=== PATIENT | female | born 1945 | race Caucasian/White ===

== ENCOUNTER 2024-07-15 15:34 | Emergency (ER) | payer MEDICARE, BC, SELFPAY ==
[2024-07-15 15:39] VITALS: BP 121/73; PULSE 71; RESP 16; TEMP 37; O2SAT 97
--- NOTE | 2024-07-15 15:45 | RT.EKG_ITS ---
APPROVED REPORT Exam: Resting ECG Reason for Exam: Fall Patient Location: E HR:106 bpm ECG Measurements Heart Rate 106 AXIS [place] [id number] P [id number] QRSd 120 QRS -63 QT 397 T 63 QTc 528 Conclusion Atrial fibrillation with RVR Rate 106 LA fasicular block, LVH No STEMI
--- NOTE | 2024-07-15 15:46 | W.ED.GENAD ---
Discharge Plan Disposition Patient Disposition: Care Home Facility(SNF) Condition: Stable Discharge Details Clinical Impression: Closed head injury without concussion, Fall Primary Care Provider: Unknown,Unknown ED Provider: Brianna Barrera Home Meds and New Rx's Prescriptions: Continued acetaminophen 325 mg capsule 650 mg PO Q4H PRN apixaban 5 mg tablet 5 mg PO BID bisacodyl [Laxative (bisacodyl)] 10 mg suppository 10 mg [place] DAILY PRN ergocalciferol (vitamin D2) 1,250 mcg (50,000 unit) capsule 1,250 mcg PO QWEEK Patient Comments: fridays furosemide 20 mg tablet 20 mg PO DAILY levothyroxine [Euthyrox] 125 mcg tablet 125 mcg PO DAILY losartan [Cozaar] 100 mg tablet 100 mg PO DAILY melatonin 1 mg tablet 2 mg PO QHS Metamucil 3.4 gram/5.4 gram powder 1 tbsp PO DAILY Rx Instructions: mix into at least 8 oz of water or juice before administering metoprolol succinate 50 mg tablet extended release 24 hr 50 mg PO DAILY magnesium hydroxide [Milk of Magnesia] 400 mg/5 mL suspension 30 ml PO DAILY PRN polyethylene glycol 3350 [Gavilax] 17 gram/dose powder 17 g PO DAILY PRN olanzapine 2.5 mg tablet 2.5 mg PO BID PRN olanzapine 5 mg tablet 5 mg PO QHS potassium chloride 20 mEq tablet extended release 20 meq PO DAILY trazodone 50 mg tablet 25 mg PO QHS PRN trazodone 50 mg tablet 25 mg PO QHS venlafaxine 75 mg capsule,extended release 24hr 75 mg PO DAILY Discharge Instructions Instructions: Preventing falls in adults, Head Injury Observation (DC) Additional Instructions: No evidence of intracranial bleeding or abnormality at this time. No evidence of broken bones. Follow up with primary care provider in 3-5 days. Return to ED sooner if any worsening headache, confusion, nausea, vomiting, blurry or double vision or concerns. HPI General Mode of arrival: EMS. Date/Time Provider Initiated Documentation: 07/15/24 15:41. Limitations to Documentation: altered mental status (Baseline dementia). Information obtained by: patient, EMS, RN notes reviewed and old records reviewed. HPI Narrative: 78-year-old female presents to the ER via EMS with chief complaint of head injury. Patient reports that she tripped landing on her head. Unknown LOC. Patient does take Eliquis. No focal neurodeficits. She denies any chest pain shortness of breath or belly pain. She does have a history of dementia. She presents in a c-collar via EMS. Related Data Home Medications ?Medication ?Instructions ?Recorded ?Confirmed acetaminophen 325 mg capsule 650 mg PO Q4H PRN 07/15/24 07/15/24 apixaban 5 mg tablet 5 mg PO BID 07/15/24 07/15/24 bisacodyl 10 mg rectal suppository 10 mg [place] DAILY PRN 07/15/24 07/15/24 (Laxative (bisacodyl)) ergocalciferol (vitamin D2) 1,250 1,250 mcg PO QWEEK 07/15/24 07/15/24 mcg (50,000 unit) capsule furosemide 20 mg tablet 20 mg PO DAILY 07/15/24 07/15/24 levothyroxine 125 mcg tablet 125 mcg PO DAILY 07/15/24 07/15/24 (Euthyrox) losartan 100 mg tablet (Cozaar) 100 mg PO DAILY 07/15/24 07/15/24 magnesium hydroxide 400 mg/5 mL 30 ml PO DAILY PRN 07/15/24 07/15/24 oral suspension (Milk of Magnesia) melatonin 1 mg tablet 2 mg PO QHS 07/15/24 07/15/24 metoprolol succinate 50 mg 50 mg PO DAILY 07/15/24 07/15/24 tablet,extended release 24 hr olanzapine 2.5 mg tablet 2.5 mg PO BID PRN 07/15/24 07/15/24 olanzapine 5 mg tablet 5 mg PO QHS 07/15/24 07/15/24 polyethylene glycol 3350 17 17 g PO DAILY PRN 07/15/24 07/15/24 gram/dose oral powder (Gavilax) potassium chloride 20 mEq 20 meq PO DAILY 07/15/24 07/15/24 tablet,extended release psyllium husk 3.4 gram/5.4 gram 1 tbsp PO DAILY 07/15/24 07/15/24 oral powder (Metamucil) trazodone 50 mg tablet 25 mg PO QHS 07/15/24 07/15/24 trazodone 50 mg tablet 25 mg PO QHS PRN 08/23/24 08/23/24 venlafaxine 75 mg capsule,extended 75 mg PO DAILY 07/15/24 07/15/24 release 24 hr Allergies Allergy/AdvReac Type Severity Reaction Status Date / Time DOC Inhibitors Allergy Unknown Unknown Verified 07/15/24 16:43 esomeprazole Allergy Unknown Unknown Verified 07/15/24 16:43 lansoprazole Allergy Unknown Unknown Verified 07/15/24 16:43 Penicillins Allergy Unknown Unknown Verified 07/15/24 16:43 zolpidem Allergy Unknown Unknown Verified 07/15/24 16:43 Review of Systems All systems reviewed & are unremarkable except as noted in HPI and below Constitutional Constitutional: Reports as per HPI, Reports frequent falls, Reports headache(s) and Denies weakness ENT Ears, Nose, Mouth, and Throat: Reports headache(s) Neurologic Neurologic: Reports frequent falls, Reports headache(s) and Denies weakness Exam Narrative Exam Narrative: General: Well Developed, Awake and at baseline, pleasantly confused, conversant. Skin: Warm and Dry HEENT: Head: No palpable deformities, Normocephalic Eyes: Pupils PERRLA, EOM's intact. No periorbital eccymosis or step off Ears: Canal patent. Tympanic membranes are clear . No motta's sign, no hemptympanum. Nose/Face: Atraumatic. Facial bones nontender to palpation and stable with manipulation. Mouth/Throat: No intraoral trauma. Teeth and mandible are intact. Neck: No midline tenderness, no step off, no deformity to palpation of C-spine. Trachea midline. Chest: No surface trauma. Nontender without crepitus or deformity. Lungs clear to ausculatation bilaterally. Heart: RRR, no rubs, murmurs or gallop. Abdomen: No abrasions, ecchymosis, or surface trauma. Nondistended. Nontender to palpation no guarding, rebound, or rigidity. Pelvis: Nontender to palpation and stable to compression. Femoral pulses strong and equal Extremities: no surface trauma. Sensation intact. Peripheral pulses intact and equal. Neuro: ANO x2 does have a history of dementia, GCS 15, cranial nerves II through XII intact. Motor and sensory exam nonfocal. Reflexes are symmetric. Medical Decision Making 78-year-old female presents to the ER via EMS with chief complaint of head injury. Patient reports that she tripped landing on her head. Unknown LOC. Patient does take Eliquis. No focal neurodeficits. She denies any chest pain shortness of breath or belly pain. She does have a history of dementia. She presents in a c-collar via EMS. Workup ordered including EKG CBC. Serial troponins head CT and neck CT. Informed by staff registered nurse that Patient removed her C-collar. CT head within normal limits, CT C-spine shows no acute bony abnormality. No leukocytosis, labs including troponin are within normal limits. 1838: EMS here for transportation back to health and rehab. This text was generated using [employer] system, please disregard any oddities of phrase or misspellings. Medical Records Medical records reviewed: Yes I reviewed the patient's medical records. Imaging Data Radiologic Study: Imaging: CT Scan Radiologist's impression: COMPARISON: No exams were available for comparison FINDINGS: The examination is limited due to patient motion artifact. CT Head: Ventricles and Extra axial spaces: Normal in size and morphology for the patient's age. Hemorrhage: None. Cerebral parenchyma: There are areas of decreased attenuation in the white matter consistent with chronic microvascular ischemic disease. No acute mass effect. Midline shift: None. Brainstem/Cerebellum: Normal. Calvarium: Normal. Visualized Paranasal sinuses/Mastoids: Clear. Soft Tissues: Unremarkable. CT Cervical Spine: There is artifact from the patient's dental work. Bones: No acute fracture or subluxation. Age-appropriate degenerative changes are present. Soft Tissues: Unremarkable. Lung Apices: Clear. IMPRESSION: 1. No acute intracranial process. 2. No acute fracture or subluxation in the cervical spine. Lab Data Lab results reviewed: Yes I reviewed the patient's lab results. Labs: Laboratory Tests Range/Units 07/15/24 16:15 WBC (4.4-10.8) 10^3/uL 6.05 RBC (3.93-5.22) 10^6/uL 4.90 Hgb (11.2-15.7) g/dL 15.1 Hct (36.0-46.0) % 46.2 H MCV (80-95) fL 94 MCH (27.0-33.0) pg 30.8 MCHC (32.0-36.0) % 32.7 RDW (11.7-14.6) % 13.8 Plt Count (130-400) 10^3/uL 184 MPV (8.0-11.0) fL 11.8 H Immature Gran % % 0.7 Neutrophils % % 64.4 Lymphocytes % % 13.4 Monocytes % % 17.2 Eosinophils % % 3.6 Basophils % % 0.7 Nucleated RBC % (0.0-0.3) % 0.0 Absolute Neutrophils (1.2-6.7) 10^3/uL 3.90 Absolute Lymphocytes (1.2-3.4) 10^3/uL 0.81 L Absolute Monocytes (0.1-0.8) 10^3/uL 1.04 H Absolute Eosinophils (0.0-0.7) 10^3/uL 0.22 Absolute Basophils (0.0-0.2) 10^3/uL 0.04 PT (9.1-11.1) sec 12.8 H INR (0.9-1.1) 1.3 H APTT (23.6-32.8) sec 34.8 H Sodium (136-145) mmol/L 140 Potassium (3.5-5.1) mmol/L 3.9 Chloride (98-107) mmol/L 104 Carbon Dioxide (21.0-32.0) mmol/L 27.7 Anion Gap (3-11) mmol/L 8.3 BUN (7-18) mg/dL 24 H Creatinine (0.55-1.02) mg/dL 1.0 Est GFR (CKD-EPI 2020) (mL/min/1.73m2) 57.31 Glucose (74-106) mg/dL 108 H Calcium (8.5-10.1) mg/dL 9.0 Magnesium (1.8-2.4) mg/dL 2.0 Total Bilirubin (0.2-1.0) mg/dL 0.64 AST (15-37) U/L 34 ALT (14-59) U/L 34 Alkaline Phosphatase (46-116) U/L 116 Troponin I (< or =60) ng/L < 50 Total Protein (6.4-8.2) g/dL 7.0 Albumin (3.4-5.0) g/dL 3.1 L Quality:SDOH Health Related Social Needs: No Data to Display PFSH All Active Problems (Updated 07/15/24 @ 17:49 by Brianna Barrera NP) Fall (Acute) Closed head injury without concussion (Acute) Social History Smoking/Tobacco Use Status: Unknown Smoking risk assessment performed?: Yes Alcohol Intake: former Drug use: Never Substance use type: does not use Housing: halfway Do you feel safe at home: Yes Do you feel safe in your relationship?: Yes Additional Social history: family POA
[2024-07-15 16:22] LABS: Abs Immature Grans 0.04 10^3/uL (0.0-0.06); Absolute Basophil Count 0.04 10^3/uL (0.0-0.2); Absolute Eosinophil Count 0.22 10^3/uL (0.0-0.7); Absolute Lymphocyte Count 0.81 10^3/uL (1.2-3.4); Absolute Monocyte Count 1.04 10^3/uL (0.1-0.8); Basophils % 0.7 %; Eosinophils % 3.6 %; HCT 46.2 % (36.0-46.0); HGB 15.1 g/dL (11.2-15.7); Immature Grans % 0.7 %; Lymphocytes % 13.4 %; MCH 30.8 pg (27.0-33.0); MCHC 32.7 % (32.0-36.0); MCV 94 fL (80-95); MPV 11.8 fL (8.0-11.0); Monocytes % 17.2 %; Neutrophils % 64.4 %; Platelet Count 184 10^3/uL (130-400); RDW 13.8 % (11.7-14.6); WBC 6.05 10^3/uL (4.4-10.8)
[2024-07-15 16:38] LABS: INR 1.3 (0.9-1.1); PTT Activated 34.8 sec (23.6-32.8); Prothrombin Time 12.8 sec (9.1-11.1)
[2024-07-15 16:42] LABS: ALT 34 U/L (14-59); AST 34 U/L (15-37); Albumin 3.1 g/dL (3.4-5.0); Alkaline Phosphatase 116 U/L (46-116); Anion Gap 8.3 mmol/L (3-11); BUN 24 mg/dL (7-18); Bilirubin, Total 0.64 mg/dL (0.2-1.0); CO2 27.7 mmol/L (21.0-32.0); Chloride 104 mmol/L (98-107); Estimated GFR 57.31 (mL/min/1.73m2); Glucose 108 mg/dL (74-106); Potassium 3.9 mmol/L (3.5-5.1); Sodium 140 mmol/L (136-145); Troponin I < 50 ng/L (< or =60)
--- NOTE | 2024-07-15 17:12 | DI.CT_ITS ---
Exam(s) CT HEAD CERVICAL SPINE WO EXAM: CT HEAD CERVICAL SPINE WO CLINICAL HISTORY: Closed head injury, in C-collar. TECHNIQUE: Imaging Protocol: Axial computed tomography images with coronal and sagittal reformatted images were created and reviewed COMPARISON: No exams were available for comparison FINDINGS: The examination is limited due to patient motion artifact. CT Head: Ventricles and Extra axial spaces: Normal in size and morphology for the patient's age. Hemorrhage: None. Cerebral parenchyma: There are areas of decreased attenuation in the white matter consistent with chr onic microvascular ischemic disease. No acute mass effect. Midline shift: None. Brainstem/Cerebellum: Normal. Calvarium: Normal. Visualized Paranasal sinuses/Mastoids: Clear. Soft Tissues: Unremarkable. CT Cervical Spine: There is artifact from the patient's dental work. Bones: No acute fracture or subluxation. Age-appropriate degenerative changes are present. Soft Tissues: Unremarkable. Lung Apices: Clear. IMPRESSION: 1. No acute intracranial process. 2. No acute fracture or subluxation in the cervical spine. RADIATION DOSE DELIVERED: Total DLP DATA REPOSITORY: All CT scans at this facility are submitted to the National Radiology Data Registry (NRDR) Dose Index Registry (DIR) with the [employer] (A[employer]). RADIATION OPTIMIZATION: All CT scans at this facility use at least one of these dose optimization te chniques: automated exposure control; mA and/or kV adjustment per patient size (includes targeted exa ms where dose is matched to clinical indication); or iterative reconstruction.
== END 2024-07-15 18:43 | disposition skilled nursing facility (03) ==
PROVIDERS: Emergency Provider Registered Nurse Emergency
DX: S09.8XXA Other specified injuries of head, initial encounter (principal); I48.91 Unspecified atrial fibrillation; I44.4 Left anterior fascicular block; F03.90 Unspecified dementia, unspecified severity, without behavioral disturbance, psychotic disturbance, mood disturbance, and anxiety; W01.10XA Fall on same level from slipping, tripping and stumbling with subsequent striking against unspecified object, initial encounter; Y93.01 Activity, walking, marching and hiking; Z79.01 Long term (current) use of anticoagulants
CPT/HCPCS: 36415; 80053; 93005; 99285; 70450; 72125; 83735; 84484; 85025; 85610; 85730; 93010; 99284

== ENCOUNTER 2024-07-26 16:06 | Outpatient (REF) | payer MEDICARE, SELFPAY ==
[2024-07-26 16:27] LABS: Anion Gap 7.8 mmol/L (3-11); BUN 26 mg/dL (7-18); CO2 26.2 mmol/L (21.0-32.0); CREATININE 0.9 mg/dL (0.55-1.02); Calcium 8.9 mg/dL (8.5-10.1); Chloride 108 mmol/L (98-107); Estimated GFR 65.03 (mL/min/1.73m2); Glucose 125 mg/dL (74-106); Magnesium 1.9 mg/dL (1.8-2.4); Potassium 4.5 mmol/L (3.5-5.1); Sodium 142 mmol/L (136-145)
== END 2024-07-26 16:07 | disposition home or self-care (01) ==
LOC: LBN 16:06
PROVIDERS: Visit Provider Family Medicine
DX: I50.32 Chronic diastolic (congestive) heart failure (principal); M62.81 Muscle weakness (generalized); I10 Essential (primary) hypertension
CPT/HCPCS: 80048; 83735

== ENCOUNTER 2024-09-08 16:05 | Outpatient (REF) | payer MEDICARE, SELFPAY ==
[2024-09-08 18:29] LABS: Abs Immature Grans 0.03 10^3/uL (0.0-0.06); Absolute Basophil Count 0.04 10^3/uL (0.0-0.2); Absolute Eosinophil Count 0.37 10^3/uL (0.0-0.7); Absolute Lymphocyte Count 0.97 10^3/uL (1.2-3.4); Absolute Monocyte Count 0.77 10^3/uL (0.1-0.8); Absolute Neutrophil Count 5.25 10^3/uL (1.2-6.7); Basophils % 0.5 %; HCT 39.6 % (36.0-46.0); HGB 12.7 g/dL (11.2-15.7); Immature Grans % 0.4 %; Lymphocytes % 13.1 %; MCH 30.7 pg (27.0-33.0); MCHC 32.1 % (32.0-36.0); MCV 96 fL (80-95); MPV 12.3 fL (8.0-11.0); Monocytes % 10.4 %; Neutrophils % 70.6 %; Platelet Count 198 10^3/uL (130-400); RBC 4.14 10^6/uL (3.93-5.22); RDW 13.6 % (11.7-14.6); RDW-SD 47.4 fL; WBC 7.43 10^3/uL (4.4-10.8)
[2024-09-08 18:53] LABS: Anion Gap 6.2 mmol/L (3-11); BUN 20 mg/dL (7-18); CO2 29.8 mmol/L (21.0-32.0); CREATININE 0.8 mg/dL (0.55-1.02); Calcium 8.8 mg/dL (8.5-10.1); Chloride 110 mmol/L (98-107); Glucose 98 mg/dL (74-106); Potassium 4.1 mmol/L (3.5-5.1); Sodium 146 mmol/L (136-145); TSH (W/Ref FT4) 1.38 uIU/mL (0.36-3.74)
[2024-09-09 15:45] LABS: Vitamin D 25 Total 27.4 ng/mL (30-100)
== END 2024-09-08 16:06 | disposition home or self-care (01) ==
LOC: LBN 16:05
PROVIDERS: Visit Provider Family Medicine
DX: M62.81 Muscle weakness (generalized) (principal); E55.9 Vitamin D deficiency, unspecified
CPT/HCPCS: 80048; 82306; 84443; 85025

== ENCOUNTER 2024-09-15 15:19 | Outpatient (REF) | payer MEDICARE, SELFPAY ==
[2024-09-15 15:29] LABS: Anion Gap 5.3 mmol/L (3-11); BUN 24 mg/dL (7-18); CO2 27.7 mmol/L (21.0-32.0); CREATININE 0.8 mg/dL (0.55-1.02); Calcium 8.6 mg/dL (8.5-10.1); Chloride 111 mmol/L (98-107); Glucose 135 mg/dL (74-106); Sodium 144 mmol/L (136-145)
== END 2024-09-15 15:20 | disposition home or self-care (01) ==
LOC: LBN 15:19
PROVIDERS: Visit Provider Family Medicine
DX: E55.9 Vitamin D deficiency, unspecified (principal); M62.81 Muscle weakness (generalized); E03.9 Hypothyroidism, unspecified; I50.32 Chronic diastolic (congestive) heart failure; I10 Essential (primary) hypertension
CPT/HCPCS: 80048; 82306

== ENCOUNTER 2025-03-20 18:43 | Outpatient (REF) | payer MEDICARE, SELFPAY ==
[2025-03-20 18:16] LABS: Bilirubin Negative (Negative); Blood Negative (Negative); Clarity Clear (Clear); Glucose Negative (Negative); Ketones Negative (Negative); Leukocyte Esterase Negative (Negative); Nitrite Negative (Negative); Urobilinogen 0.2 mg/dL (Up to 0.2)
== END 2025-03-20 18:44 | disposition home or self-care (01) ==
LOC: LBN 18:43
PROVIDERS: Visit Provider Nurse Practitioner Gerontology
DX: M62.81 Muscle weakness (generalized) (principal)
CPT/HCPCS: 81003; 87086

== ENCOUNTER 2025-06-08 13:53 | Outpatient (REF) | payer MEDICARE, SELFPAY ==
[2025-06-08 14:18] LABS: Abs Immature Grans 0.04 10^3/uL (0.0-0.06); HCT 40.7 % (36.0-46.0); HGB 13.2 g/dL (11.2-15.7); Immature Grans % 0.5 %; MCH 31.4 pg (27.0-33.0); MCHC 32.4 % (32.0-36.0); MCV 97 fL (80-95); MPV 13.0 fL (8.0-11.0); Platelet Count 201 10^3/uL (130-400); RBC 4.20 10^6/uL (3.93-5.22); RDW 13.8 % (11.7-14.6); RDW-SD 49.0 fL; WBC 8.26 10^3/uL (4.4-10.8)
[2025-06-08 14:49] LABS: ALT 26 U/L (14-59); AST 17 U/L (15-37); Albumin 3.0 g/dL (3.4-5.0); Alkaline Phosphatase 97 U/L (46-116); Anion Gap 10.3 mmol/L (3-11); BUN 25 mg/dL (7-18); Bilirubin, Total 0.6 mg/dL (0.2-1.0); CO2 24.7 mmol/L (21.0-32.0); Calcium 8.8 mg/dL (8.5-10.1); Chloride 106 mmol/L (98-107); Estimated GFR 87.37 (mL/min/1.73m2); Glucose 138 mg/dL (74-106); Potassium 4.0 mmol/L (3.5-5.1); Sodium 141 mmol/L (136-145); TSH (W/Ref FT4) 1.95 uIU/mL (0.36-3.74); Total Protein 6.0 g/dL (6.4-8.2)
== END 2025-06-08 13:54 | disposition home or self-care (01) ==
LOC: LBN 13:53
PROVIDERS: Visit Provider Nurse Practitioner Adult Health
DX: E03.9 Hypothyroidism, unspecified (principal); I10 Essential (primary) hypertension
CPT/HCPCS: 80053; 84443; 85025

== ENCOUNTER 2025-06-27 16:37 | Outpatient (REF) | payer MEDICARE, SELFPAY ==
[2025-06-27 15:38] LABS: Abs Immature Grans 0.04 10^3/uL (0.0-0.06); HCT 39.6 % (36.0-46.0); HGB 12.7 g/dL (11.2-15.7); Immature Grans % 0.4 %; MCH 30.8 pg (27.0-33.0); MCHC 32.1 % (32.0-36.0); MCV 96 fL (80-95); MPV 12.2 fL (8.0-11.0); Platelet Count 203 10^3/uL (130-400); RBC 4.12 10^6/uL (3.93-5.22); RDW 14.2 % (11.7-14.6); RDW-SD 50.1 fL; WBC 9.22 10^3/uL (4.4-10.8)
[2025-06-27 17:01] LABS: AST 19 U/L (15-37); Albumin 3.1 g/dL (3.4-5.0); Alkaline Phosphatase 100 U/L (46-116); Anion Gap 6.5 mmol/L (3-11); BUN 28 mg/dL (7-18); Bilirubin, Total 0.5 mg/dL (0.2-1.0); CO2 26.5 mmol/L (21.0-32.0); Calcium 8.5 mg/dL (8.5-10.1); Chloride 105 mmol/L (98-107); Estimated GFR 87.37 (mL/min/1.73m2); Glucose 126 mg/dL (74-106); Potassium 3.9 mmol/L (3.5-5.1); Sodium 138 mmol/L (136-145); Total Protein 6.3 g/dL (6.4-8.2)
[2025-06-27 17:20] LABS: ALT 32 U/L (14-59)
== END 2025-06-27 16:38 | disposition home or self-care (01) ==
LOC: LBN 16:37
PROVIDERS: Visit Provider Nurse Practitioner Adult Health
DX: I50.33 Acute on chronic diastolic (congestive) heart failure (principal)
CPT/HCPCS: 80053; 85025

== ENCOUNTER 2025-08-17 17:40 | Outpatient (REF) | payer MEDICARE, SELFPAY ==
[2025-08-17 19:06] LABS: TSH 4.41 uIU/mL (0.36-3.74)
== END 2025-08-17 17:41 | disposition home or self-care (01) ==
LOC: LBN 17:40
PROVIDERS: Visit Provider Internal Medicine
DX: E03.9 Hypothyroidism, unspecified (principal)
CPT/HCPCS: 84443

== ENCOUNTER 2025-09-05 13:11 | Emergency (ER) | payer MEDICARE, BC, SELFPAY ==
[2025-09-05 13:12] VITALS: BP 125/73; PULSE 90; RESP 19; TEMP 36.8; O2SAT 97
--- NOTE | 2025-09-05 13:15 | DI.CT_ITS ---
Exam(s) CT HEAD WO EXAM: CT HEAD WO CLINICAL HISTORY: Fall altered. TECHNIQUE: Imaging Protocol: Axial computed tomography images with coronal and sagittal reformatted images were created and reviewed COMPARISON: CT CT HEAD CERVICAL SPINE WO from 07/15/2024 FINDINGS: Ventricles and Extra axial spaces: Normal in size and morphology for the patient's age. Hemorrhage: None. Cerebral parenchyma: There are areas of decreased attenuation in the white matter consistent with chronic microvascular ischemic disease. There is no evidence of an acute territorial infarct or acute mass effect. Midline shift: None. Brainstem/Cerebellum: Normal. Calvarium: Normal. Visualized Paranasal sinuses/Mastoids: Clear. Soft Tissues: Unremarkable. IMPRESSION: No acute intracranial process. RADIATION DOSE DELIVERED: 922.28mGy.cm Total DLP DATA REPOSITORY: All CT scans at this facility are submitted to the National Radiology Data Registry (NRDR) Dose Index Registry (DIR) with the [employer] (ACR). RADIATION OPTIMIZATION: All CT scans at this facility use at least one of these dose optimization techniques: automated exposure control; mA and/or kV adjustment per patient size (includes targeted exams where dose is matched to clinical indication); or iterative reconstruction.
--- NOTE | 2025-09-05 13:15 | DI.CT_ITS ---
Exam(s) CT PELVIC WO EXAM: CT PELVIC WO CLINICAL HISTORY: Right-sided hip pain. TECHNIQUE: Imaging Protocol: Axial computed tomography images with coronal and sagittal reformatted images were created and reviewed. COMPARISON: No exams were available for comparison FINDINGS: Bones: The osseous structures and articular surfaces are intact. Bony alignment is satisfactory. No cellulitic or osteomyelitic changes are identified. There are degenerative changes seen in the hips bilaterally. There are enthesophytes at the greater trochanters bilaterally. The sacroiliac joints and symphysis pubis are well maintained. Soft Tissues: Atherosclerotic calcification is seen of the abdominal aorta. The urinary bladder is grossly unremarkable. The uterus is absent. There is thickening of the wall of the ascending colon. There is a normal appendix present. IMPRESSION: 1. There is no acute fracture or dislocation present. If symptoms persist, an MRI of the right hip may be obtained for further evaluation. 2. Question of thickening of the wall of the ascending colon. Outpatient CT of the abdomen and pelvis with oral and intravenous contrast should be considered for further evaluation. RADIATION DOSE DELIVERED: 521.13mGy.cm Total DLP 521.13mGy.cmTotal DLP DATA REPOSITORY: All CT scans at this facility are submitted to the National Radiology Data Registry (NRDR) Dose Index Registry (DIR) with the [employer] (ACR). RADIATION OPTIMIZATION: All CT scans at this facility use at least one of these dose optimization techniques: automated exposure control; mA and/or kV adjustment per patient size (includes targeted exams where dose is matched to clinical indication); or iterative reconstruction.
--- NOTE | 2025-09-05 13:23 | W.ED.GENAD ---
Discharge Plan Disposition Patient Disposition: Home Discharge Details Clinical Impression: Acute pain of right hip, Hx of falling Primary Care Provider: Unknown,Unknown ED Provider: Edi Meyers [place] Meds and New Rx's Prescriptions: Continued Rexulti 2 mg tablet 2 mg PO DAILY Rx Instructions: administer on days 5 through 7 for starting therapy fentanyl 25 mcg/hr patch 72 hour 1 patch transdermal Q72H acetaminophen 325 mg capsule 650 mg PO Q4H PRN apixaban 5 mg tablet 5 mg PO BID bisacodyl [Laxative (bisacodyl)] 10 mg suppository 10 mg [place] DAILY PRN ergocalciferol (vitamin D2) 1,250 mcg (50,000 unit) capsule 1,250 mcg PO QWEEK Patient Comments: fridays furosemide 20 mg tablet 20 mg PO .COMPLEX Rx Instructions: 20 mg orally every other day; levothyroxine [Euthyrox] 125 mcg tablet 137 mcg PO DAILY losartan [Cozaar] 100 mg tablet 100 mg PO DAILY melatonin 1 mg tablet 2 mg PO QHS Metamucil 3.4 gram/5.4 gram powder 1 tbsp PO DAILY Rx Instructions: mix into at least 8 oz of water or juice before administering metoprolol succinate 50 mg tablet extended release 24 hr 25 mg PO BID magnesium hydroxide [Milk of Magnesia] 400 mg/5 mL suspension 30 ml PO DAILY PRN polyethylene glycol 3350 [Gavilax] 17 gram/dose powder 17 g PO DAILY PRN olanzapine 2.5 mg tablet 2.5 mg PO BID PRN olanzapine 5 mg tablet 5 mg PO QHS potassium chloride 20 mEq tablet extended release 20 meq PO DAILY trazodone 50 mg tablet 25 mg PO QHS PRN trazodone 50 mg tablet 25 mg PO QHS venlafaxine 75 mg capsule,extended release 24hr 150 mg PO DAILY Discharge Instructions Additional Instructions: You are seen in the emergency department for your hip pain. You are CAT scan showed no sign of any fractures in your hip. Your CAT scan of your head showed no sign of any bleeding. As we discussed if you develop worsening pain fevers chills nausea or vomiting please return to the emergency department. Discharge Data Discharge Date/Time-TO BE ENTERED AT DEPARTURE: 09/05/25 15:15 HPI General Date/Time Provider Initiated Documentation: 09/05/25 13:22. HPI Narrative: MDM Primary survey intact. Reassuring shock index. Secondary survey patient has mild right-sided hip tenderness. No obvious deformities. No ecchymosis. Given age and need for CT head will also obtain CT pelvis to assess for pelvic pathology. No pain out of proportion to suggest necrotizing soft tissue infection. Patient reportedly has history from daughter of sliding out of bed. Given no fevers I am not suspicious for urinary tract infection. Patient has baseline dementia so was not able to answer orientation questions. No neck tenderness to suggest cervical spinal fracture and no obvious distracting injury so we will defer CT cervical spine at this juncture. Patient was not reportedly vomiting to suggest increased risk for acute electrolyte abnormalities. Patient is wheelchair-bound at baseline so we will defer ambulatory trial if imaging is reassuring. I considered sepsis however patient has vital signs reassuring against sepsis as she is normothermic and not tachycardic nor hypotensive so I felt that the risks of broad-spectrum antibiotics and blood cultures outweighed the benefits. If imaging is reassuring will ensure patient can tolerate p.o. trial in the emergency department. I spoke with patient's daughter Lili. We reviewed plan for treatment in the emergency department. Will update her following imaging results. 2:[address] pelvis negative for any acute osseous abnormalities. Radiology did note question wall thickening in the colon. Given soft nontender abdomen will defer CT abdomen at this point in time. Given no significant hip tenderness and wheelchair-bound at baseline will defer MRI at this point in time. CT head also reassuring against any acute intracranial process. I updated the patient's daughter. She reported that indeed patient is primarily transferred by a Kenny lift. As result given limited weightbearing we will defer MRI at this point in time. I also explained to patient's daughter if she develop fevers nausea vomiting did not stop or had any other concerns that they should return patient to the emergency department. Patient daughter understood return indications patient was transferred back to [facility]. HPI The patient presents for evaluation of increased right hip pain. She reports no noticeable shortening or rotation of the hip. Her vital signs were reassuring w/paramedics with a pulse rate of 86, oxygen saturation at 98%, and blood pressure of 150/90. However, she became combative when pressure was applied to her right side, leading to concerns about a possible fracture. She experienced an unwitnessed fall last night but did not reportedly hit her head. Due to her dementia, she is unable to provide a detailed history or describe her pain level. It was observed that she was not her usual self when attempts were made to move her, and she appeared to be protecting her right hip. She is typically confused. She was administered 50 mg of tramadol at 10:30 this morning. She is currently on apixaban 5 mg twice daily. Exam General: Elderly-appearing in no acute distress speaking in complete sentences. Head: Normocephalic, atraumatic. Eye: Extraocular eye movements intact. No conjunctival injection. No scleral icterus. Ear, nose, mouth, throat: Grossly normal inspection. Normal voice, handling secretions normally. Neck: Trachea midline. No midline cervical spinal tenderness. Back: No midline thoracic nor lumbar spinal tenderness. No step-off. No deformities. No signs of sacral decubitus ulcer. Cardiovascular: Well-perfused distal extremities. Regular rate and rhythm Respiratory: Nonlabored respiration. Clear lungs bilaterally. Gastrointestinal: Nondistended abdomen. Soft. Nontender. Wearing briefs. Musculoskeletal: Bilateral upper and lower extremities nontender. Bilateral feet warm well-perfused intact PT and DP pulses. Pelvis stable. Mild right sided hip tenderness on palpation. Skin: Normal for age and race, grossly normal temperature and turgor. No acute rash. Neurologic: Follows commands but is not oriented to person, place nor time. Related Data Home Medications ?Medication ?Instructions ?Recorded ?Confirmed acetaminophen 325 mg capsule 650 mg PO Q4H PRN 07/15/24 09/05/25 apixaban 5 mg tablet 5 mg PO BID 07/15/24 09/05/25 bisacodyl 10 mg rectal suppository 10 mg [place] DAILY PRN 07/15/24 09/05/25 (Laxative (bisacodyl)) ergocalciferol (vitamin D2) 1,250 1,250 mcg PO QWEEK 07/15/24 09/05/25 mcg (50,000 unit) capsule furosemide 20 mg tablet 20 mg PO .COMPLEX 07/15/24 09/05/25 levothyroxine 125 mcg tablet 137 mcg PO DAILY 07/15/24 09/05/25 (Euthyrox) losartan 100 mg tablet (Cozaar) 100 mg PO DAILY 07/15/24 09/05/25 magnesium hydroxide 400 mg/5 mL 30 ml PO DAILY PRN 07/15/24 09/05/25 oral suspension (Milk of Magnesia) melatonin 1 mg tablet 2 mg PO QHS 07/15/24 09/05/25 metoprolol succinate 50 mg 25 mg PO BID 07/15/24 09/05/25 tablet,extended release 24 hr olanzapine 2.5 mg tablet 2.5 mg PO BID PRN 07/15/24 09/05/25 olanzapine 5 mg tablet 5 mg PO QHS 07/15/24 09/05/25 polyethylene glycol 3350 17 17 g PO DAILY PRN 07/15/24 09/05/25 gram/dose oral powder (Gavilax) potassium chloride 20 mEq 20 meq PO DAILY 07/15/24 09/05/25 tablet,extended release psyllium husk 3.4 gram/5.4 gram 1 tbsp PO DAILY 07/15/24 09/05/25 oral powder (Metamucil) trazodone 50 mg tablet 25 mg PO QHS 07/15/24 09/05/25 trazodone 50 mg tablet 25 mg PO QHS PRN 07/15/24 09/05/25 venlafaxine 75 mg capsule,extended 150 mg PO DAILY 07/15/24 09/05/25 release 24 hr brexpiprazole 2 mg tablet (Rexulti) 2 mg PO DAILY 09/05/25 09/05/25 fentanyl 25 mcg/hr transdermal 1 patch transdermal Q72H 09/05/25 09/05/25 patch Allergies Allergy/AdvReac Type Severity Reaction Status Date / Time DOC Inhibitors Allergy Unknown Unknown Verified 09/05/25 13:29 esomeprazole Allergy Unknown Unknown Verified 09/05/25 13:29 lansoprazole Allergy Unknown Unknown Verified 09/05/25 13:29 Penicillins Allergy Unknown Unknown Verified 09/05/25 13:29 zolpidem Allergy Unknown Unknown Verified 09/05/25 13:29 General Stated Complaint: Orthopedic VIRAJ: 3 Course Vital Signs Vital signs: Vital Signs Temperature 36.8 C 09/05/25 13:12 Pulse 90 09/05/25 13:12 Respiratory Rate 19 09/05/25 13:12 Blood Pressure 125/73 09/05/25 13:12 Pulse Oximetry 97 09/05/25 13:12 Temperature 36.8 C 09/05/25 13:12 Temperature Source Oral 09/05/25 13:12 Pulse 90 09/05/25 13:12 Respiratory Rate 19 09/05/25 13:12 Blood Pressure 125/73 09/05/25 13:12 Blood Pressure Position Sitting 09/05/25 13:12 Pulse Oximetry 97 09/05/25 13:12 Oxygen Delivery Method Room Air 09/05/25 13:12 Oxygen Flow Rate 0 09/05/25 13:12 PFSH All Active Problems (Updated 09/05/25 @ 14:36 by Edi Meyers MD) Hx of falling (Acute) Acute pain of right hip (Acute) Social History Smoking/Tobacco Use Status: Unknown Smoking risk assessment performed?: Yes Alcohol Intake: former Drug use: Never Substance use type: does not use Housing: [facility] Do you feel safe at home: Yes Do you feel safe in your relationship?: Yes Additional Social history: family POA
[2025-09-05 15:12] VITALS: BP 130/62; PULSE 72; RESP 15; O2SAT 95
== END 2025-09-05 15:15 | disposition home or self-care (01) ==
LOC: ER 14:39
PROVIDERS: Emergency Provider Emergency Medicine
DX: M25.551 Pain in right hip (principal); W19.XXXA Unspecified fall, initial encounter
CPT/HCPCS: 99284; 99283; 70450; 72192

== ENCOUNTER 2025-09-20 13:16 | Outpatient (REF) | payer MEDICARE, SELFPAY ==
[2025-09-20 14:59] LABS: TSH (W/Ref FT4) 7.48 uIU/mL (0.36-3.74)
== END 2025-09-20 13:17 | disposition home or self-care (01) ==
LOC: LBN 13:16
PROVIDERS: Visit Provider Nurse Practitioner Adult Health
DX: E03.9 Hypothyroidism, unspecified (principal)
CPT/HCPCS: 84439; 84443

== ENCOUNTER 2025-09-22 14:13 | Outpatient (REF) | payer MEDICARE, SELFPAY | END 2025-09-22 14:14 | disposition home or self-care (01) | LOC: LBN 14:13 | PROVIDERS: PCP Nurse Practitioner Adult Health; Visit Provider Nurse Practitioner Adult Health | DX: I50.32 Chronic diastolic (congestive) heart failure (principal) | CPT/HCPCS: 82565 ==

== ENCOUNTER 2025-09-29 11:28 | Outpatient (REF) | payer MEDICARE, SELFPAY ==
[2025-09-29 11:43] LABS: Abs Immature Grans 0.04 10^3/uL (0.0-0.06); HCT 42.7 % (36.0-46.0); HGB 14.3 g/dL (11.2-15.7); Immature Grans % 0.4 %; MCH 31.6 pg (27.0-33.0); MCHC 33.5 % (32.0-36.0); MCV 95 fL (80-95); MPV 12.3 fL (8.0-11.0); Platelet Count 205 10^3/uL (130-400); RBC 4.52 10^6/uL (3.93-5.22); RDW 13.5 % (11.7-14.6); RDW-SD 47.2 fL; WBC 9.61 10^3/uL (4.4-10.8)
[2025-09-29 11:53] LABS: ALT 26 U/L (14-59); AST 20 U/L (15-37); Albumin 3.2 g/dL (3.4-5.0); Alkaline Phosphatase 96 U/L (46-116); Anion Gap 9.8 mmol/L (3-11); BUN 20 mg/dL (7-18); Bilirubin, Total 0.8 mg/dL (0.2-1.0); CO2 25.2 mmol/L (21.0-32.0); Calcium 8.8 mg/dL (8.5-10.1); Chloride 102 mmol/L (98-107); Glucose 133 mg/dL (74-106); Potassium 4.0 mmol/L (3.5-5.1); Sodium 137 mmol/L (136-145); Total Protein 6.6 g/dL (6.4-8.2)
== END 2025-09-29 11:29 | disposition home or self-care (01) ==
LOC: LBN 11:28
PROVIDERS: PCP Nurse Practitioner Adult Health; Visit Provider Nurse Practitioner Adult Health
DX: M62.81 Muscle weakness (generalized) (principal)
CPT/HCPCS: 80053; 85025

== ENCOUNTER 2025-10-01 13:10 | Outpatient (REF) | payer MEDICARE, SELFPAY ==
[2025-10-01 14:12] LABS: COVID-19 PCR Negative (Negative); RSV PCR Negative (Negative)
== END 2025-10-01 13:11 | disposition home or self-care (01) ==
LOC: LBN 13:10
PROVIDERS: PCP Nurse Practitioner Adult Health; Visit Provider Nurse Practitioner Adult Health
DX: J06.9 Acute upper respiratory infection, unspecified (principal)
CPT/HCPCS: 87637

== ENCOUNTER 2025-10-30 12:11 | Emergency (ER) | payer MEDICARE, SELFPAY ==
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
== END 2025-10-30 14:03 | disposition skilled nursing facility (03) ==
LOC: ER 13:46
PROVIDERS: Emergency Provider Physician Assistant; PCP Nurse Practitioner Adult Health
DX: R41.82 Altered mental status, unspecified (principal); M54.50 Low back pain, unspecified; W19.XXXA Unspecified fall, initial encounter
CPT/HCPCS: 99283; 99282